=== PATIENT | female | born 1960 | race Caucasian/White ===

== ENCOUNTER 2016-05-12 13:04 | Emergency (ER) | payer OTHER ==
[~2016-05-12] VITALS: Wt 99.0 kg
[~2016-05-12 13:04] MED LIST: LEVO500T72 PO; MECL12.5 PO
[2016-05-12] MEDS ORDERED: LEVALBUTEROL (NEB) 1.25 MG/0.5 ML AMP INH STA (15:30)
[2016-05-12] MEDS ORDERED: IPRATROPIUM (NEB) 0.5 MG/2.5 ML AMP NEB STA (15:30)
[2016-05-12] MEDS ORDERED: predniSONE 20 MG TAB PO STA (15:30)
--- NOTE | 2016-05-12 16:22 | RADRPT ---
PROCEDURE: XR Chest. CLINICAL INDICATION: Chest pain TECHNIQUE: Single frontal chest x-ray. COMPARISON: 06/02/2014 FINDINGS: Linear atelectasis / scarring is identified in the left mid lung. No acute infiltrate, significant pleural effusion or pneumothorax is identified. Cardiomediastinal silhouette is within normal limit s. The osseous structures are unremarkable. IMPRESSION: 1. Linear atelectasis / scarring is identified in the left mid lung. 2. No acute cardiopulmonary process is seen. RPTAT: EE .Iban Ceballos MD, MD Date Time Electronically viewed and signed by .Iban Ceballos MD, on 05/12/2016 16:21 .R/
[2016-05-12] MEDS ORDERED: AZIT250T94 PO (16:54)
[2016-05-12] MEDS ORDERED: PRED20TA PO (16:54)
[2016-05-12] MEDS ORDERED: ALBU8.5H3 INH (16:54)
[2016-05-12 17:05] VITALS: BP 124/58; PULSE 78; RESP 16; TEMP 98.1
--- NOTE | 2016-05-12 18:01 | ERD ---
ER Documentation Chief Complaint Date/Time DATE: 05/12/16 TIME: 17:46 Chief Complaint COUGH X5 DAYS, NUMBNESS ON LEFT ARM HPI Patient is a 55-year-old female who presents to the emergency department with a cough and wheezing 5 days. Patient states that her cough is productive in nature with yellow sputum production. Patient reports wheezing worse at night. She states that she has chest discomfort with deep inspiration. Patient denies any shortness of breath or chest pain at rest. Patient is also complaining of palpitations. Patient states that her palpitations are episodic and last approximately 15 seconds. Patient reports 4 episodes per day. Patient reports tactile fevers 3 days prior which have now resolved. She denies any abdominal pain, pain, throat pain, diarrhea. Patient complaining of left arm numbness which started 6 days ago. She has normal range of motion of her left arm. She denies any trauma or injuries. Patient also complaining of numbness to her left tongue. She states that this has been an ongoing problem for the last month. Patient states that she recently ran out of her sertraline prescription and is requesting refill. She does not recall dose or frequency. ROS All systems reviewed and are negative except as per history of present illness. Medications Home Meds Active Scripts Prednisone* (Prednisone*) 20 Mg Tab, 40 MG PO DAILY for 4 Days, TAB Prov:NAM BARNES PA-C 05/12/16 Azithromycin* (Zithromax*) 250 Mg Tablet, 250 MG PO .ZPACK DIRECTED, #6 TAB TAKE 500 MG (2 TABS) THE FIRST DAY THEN 250 MG (1 TAB) DAYS 2-5 Prov:NAM BARNES PA-C 05/12/16 Albuterol Sulfate* (Proair HFA*) 8.5 Gm Hfa.aer.ad, 2 PUFF INH Q4, #1 INHALER Prov:NAM BARNES PA-C 05/12/16 Levofloxacin* (Levaquin*) 500 Mg Tablet, 500 MG PO DAILY for Diverticulitis , # 10 TAB Prov:KIMMY MARI MD 01/02/15 Meclizine Hcl* (Meclizine Hcl*) 12.5 Mg Tab, 12.5 MG PO BID Y for dizziness , # 60 Prov:KIMMY MARI MD 01/02/15 Allergies Allergies: Coded Allergies: No Known Allergy (Unverified , 05/12/16) PMhx/Soc Sertraline History of Surgery: Yes (left eye , right knee replacement) Anesthesia Reaction: No Hx Neurological Disorder: Yes (vertigo) Hx Respiratory Disorders: No Hx Cardiac Disorders: No Hx Psychiatric Problems: No Hx Miscellaneous Medical Probl: Yes (anxiety) Hx Alcohol Use: No Hx Substance Use: No Hx Tobacco Use: No Smoking Status: Never smoker Physical Exam Vitals Vital Signs Date Time Temp Pulse Resp B/P Pulse Ox O2 Delivery O2 Flow Rate FiO2 05/12/16 17:05 98.1 78 16 124/58 96 Room Air 05/12/16 15:42 90 26 94 21 05/12/16 15:38 66 21 97 Room Air 05/12/16 13:30 97.7 65 17 129/60 96 Physical Exam GENERAL: Well-developed, well-nourished female. Appears in no acute distress, no abdominal retractions, no nasal grunting, no tripoding. HEAD: Normocephalic, atraumatic. No deformities or ecchymosis. EYE: Pupils equal, round, and reactive to light. EOMs intact. No conjunctival erythema. No scleral icterus. No eye discharge. ENT: External ear without any masses or tenderness. Auditory canals clear bilaterally. TM visualized bilaterally, non-erythematous, non-bulging. Nasal mucosa pink with no discharge. Oropharynx is pink without any tonsillar erythema or exudates. No uvula deviation. No kissing tonsils. NECK: Supple. No lymphadenopathy or thyromegaly. No meningismus. No JVD. No bruits. Trachea midline. LUNG: Wheezing heard in bilateral lower lobes, L > R HEART: Regular rate and rhythm. No murmurs, rubs or gallops. ABDOMEN: Soft, nontender, and nondistended. Positive bowel sounds in all four quadrants. No rebound tenderness, no guarding. (-) McBurney's point tenderness. No CVA tenderness. BACK: No midline tenderness. EXTREMITIES: Equal pulses bilaterally. No peripheral clubbing, cyanosis or edema. No unilateral leg swelling. NEUROLOGIC: Alert and oriented x3, cooperative. Mood and affect appropriate to situation. Cranial nerves II through XII are grossly intact. Normal speech. Motor exam: 5/5 strength in upper and lower extremities. Sensory exam: Sensation intact to light touch on all four extremities. Cerebellar function exam: No dysmetria on [id number] test. Steady gait. No pronator drift. (-) Brudzinski sign- no flexion of the hips and knees noted with neck flexion. (-) Kernigs sign- patient able to extend knee to 180 degrees with hip flexion, no hamstring stiffness noted. SKIN: Normal color. Warm and dry. No rashes or lesions. Results 24 hrs Current Medications Medications (Trade) Dose Ordered Sig/Malka Route PRN Reason Start Time Stop Time Status Last Admin Dose Admin Ipratropium [place] (Atrovent 0.02% (Neb)) 0.5 mg ONCE STAT NEB 05/12/16 15:30 05/12/16 15:32 DC 05/12/16 15:41 Prednisone (Prednisone) 40 mg ONCE STAT PO 05/12/16 15:30 05/12/16 15:32 DC 05/12/16 15:37 Levalbuterol (Xopenex Neb) 1.25 mg ONCE STAT INH 05/12/16 15:30 05/12/16 15:33 DC 05/12/16 15:42 Procedures/MDM ED COURSE: The patient was stable throughout ED course. I kept the patient and/or family informed of laboratory and diagnostic imaging results throughout the ED course. EKG: Read by Dr. Bond, attending physician. EKG shows normal sinus rhythm at a rate of 72 bpm. Incomplete right bundle branch block. No arrhythmias, acute ST elevations or T wave changes were noted. DIAGNOSTIC IMAGING: Read by radiologist. DIAGNOSTIC IMAGING REPORT Patient: BIANKA MCGRAW : 1960 Age: 55 Sex: F MR #: [id number] DOS: 05/12/16 1530 Ordering MD: NAM BARNES PA-C Location: [facility] Room/Bed: PROCEDURE: XR Chest. CLINICAL INDICATION: Chest pain TECHNIQUE: Single frontal chest x-ray. COMPARISON: 06/02/2014 FINDINGS: Linear atelectasis / scarring is identified in the left mid lung. No acute infiltrate, significant pleural effusion or pneumothorax is identified. Cardiomediastinal silhouette is within normal limits. The osseous structures are unremarkable. IMPRESSION: 1. Linear atelectasis / scarring is identified in the left mid lung. 2. No acute cardiopulmonary process is seen. RPTAT: EE .Iban Ceballos MD, MD Date Time Electronically viewed and signed by .Iban Ceballos MD, MD on 05/12/2016 16: 21 .R/ CC: NAM BARNES PA-C MEDICATIONS GIVEN: Xopenex, ipratropium, prednisone Patient tolerated medication well with no adverse reactions. Upon reexamination , improved breath sounds were noted. Minimal wheezing auscultated. MEDICAL DECISION MAKING: This is a 55-year-old female who presents with productive cough, wheezing and left arm numbness. Vital signs were reviewed. Patient was afebrile. Patient was not hypoxic. ENT exam was normal. Lung exam revealed bilateral wheezing. A breathing treatment and also prednisone was given to the patient here in the emergency department which did improve the patient's breath sounds. Patient reported improvement in breathing. Chest x-ray showed Linear atelectasis / scarring is identified in the left mid lung. No acute cardiopulmonary process is seen. Given these findings, the patients presentation is most consistent with acute viral bronchitis. I have a much lower clinical concern for bacterial infections including pneumonia, meningitis, sinusitis, otitis externa, acute otitis media, strep pharyngitis, epiglottitis or peritonsillar abscess. EKG showed no acute ST elevations or T wave changes. Patient's palpitations are less likely due to cardiac etiology. I have advised the patient that she needs to follow-up with her primary care physician for further management of her symptoms including her numbness. Patient should see her primary care physician immediately to restart Sertraline. At this time, I will not renew the patient's sertraline prescription given that the patient does not know her dose or frequency. Low suspicion for CVA, TIA or, focal neurological deficits given that patient has normal full neuro exam. PRESCRIPTIONS: Albuterol inhaler, prednisone, Z-Trung DISCHARGE: At this time, patient is stable for discharge and outpatient management. Smoking cessation advised. Supportive therapies such as OTC throat lozenges, salt water gurgles, popsicles and jello discussed. I have instructed the patient to follow-up with his/her primary care physician in 1-2 days. I have instructed the patient to promptly return to the ER for any new or worsening symptoms including increased pain, swelling, fever, nausea, vomiting, weakness or difficulty breathing. The patient and/or family expressed understanding of and agreement with this plan. All questions were answered. Home care instructions were provided. Departure Diagnosis: Primary Impression: Acute bronchitis Bronchitis organism: unspecified organism Qualified Code: J20.9 - Acute bronchitis, unspecified organism Additional Impression: Wheezing Condition: Stable Patient Instructions: Acute Bronchitis Additional Instructions: Call your primary care doctor TOMORROW for an appointment during the next 1-2 days.See the doctor sooner or return here if your condition worsens before your appointment time. Return to the ED with any new or worsening symptoms including chest pain, shortness of breath, or, chills, nausea, vomiting, loss of consciousness. NAM BARNES PA-C May 12, 2016 17:57
== END 2016-05-12 17:05 | disposition home or self-care (01) ==
LOC: FTE 13:04
DX: J20.9 Acute bronchitis, unspecified (principal); R06.2 Wheezing; R07.89 Other chest pain; Z96.651 Presence of right artificial knee joint
CPT/HCPCS: 71010; 94664; J7512

== ENCOUNTER 2017-11-15 16:03 | Emergency (ER) | END 2017-11-15 22:12 | disposition home or self-care (01) ==

== ENCOUNTER 2018-08-14 09:30 | Day surgery (SDC) | payer OTHER ==
[~2018-08-14] VITALS: Ht 165.1 cm; Wt 100.2 kg
[~2018-08-14 09:30] MED LIST changes: +ALBU8.5H8 INH; +AZIT250T PO; +HYDR-4011 PO; +IBUP-1542 PO; +LEVO500T48 PO; -LEVO500T72 PO; +PRED20TA PO
[2018-08-14 10:18] VITALS: BP 124/67; PULSE 67; RESP 16
[2018-08-14 10:25] VITALS: Ht 165.1 cm; Wt 100.2 kg
--- NOTE | 2018-08-14 10:30 | PREAC ---
Date/Time of Note Date/Time of Note DATE: 08/14/18 TIME: 10:29 Anesthesia Eval and Record Evaluation Time Pre-Procedure Interview DATE: 08/14/18 TIME: 10:29 Age 57 Sex female NPO: 8 hrs Preoperative diagnosis Screening Planned procedure Colonoscopy Past Medical History Past Medical History: Includes Cardio: HTN, Dyslipidemia Endo: Hypothyroid Pulm: Smoking Hx, Asthma GI: Obesity Surgery & Anesthesia Issues No known issue Meds Anticoagulation: No Beta Slick within 24 hr: No Reason Beta Slick not given: Pt. not on B-Slick Active Scripts Ibuprofen* (Motrin*) 600 Mg Tab, 600 MG PO Q6, #20 TAB Prov:NATE SANCHES MD 11/15/17 Hydrocodone/Acetaminophen ([place] 5-325 Tablet) 1 Each Tablet, 1 TAB PO Q6H PRN for PAIN, #10 TAB Prov:NATE SANCHES MD 11/15/17 Prednisone* (Prednisone*) 20 Mg Tab, 40 MG PO DAILY for 4 Days, TAB Prov:NAM BARNES PA-C 05/12/16 Azithromycin* (Zithromax*) 250 Mg Tablet, 250 MG PO .ZPACK DIRECTED, #6 TAB TAKE 500 MG (2 TABS) THE FIRST DAY THEN 250 MG (1 TAB) DAYS 2-5 Prov:NAM BARNES PA-C 05/12/16 Albuterol Sulfate* (Proair HFA*) 8.5 Gm Hfa.aer.ad, 2 PUFF INH Q4, #1 INHALER Prov:NAM BARNES PA-C 05/12/16 Levofloxacin* (Levaquin*) 500 Mg Tablet, 500 MG PO DAILY for Diverticulitis , #10 TAB Prov:KIMMY MARI MD 01/02/15 Meclizine Hcl* (Meclizine Hcl*) 12.5 Mg Tab, 12.5 MG PO BID PRN for dizziness , #60 Prov:KIMMY MARI MD 01/02/15 Meds reviewed: Yes Allergies Coded Allergies: No Known Allergy (Unverified , 05/12/16) Allergies Reviewed: Yes Labs/Studies Labs Reviewed: Reviewed by anesthesiologist test: N/A Studies: ECG (n/a), CXR (n/a) Pre-procedure Exam Airway: Adequate mouth opening, Adequate thyromental dist Mallampati: Mallampati II Teeth: Normal Lung: Normal Heart: Normal ASA Physical Status ASA physical status: 3 Emergency: None Planned Anesthetic General/MAC: MAC Planned Pain Management Parenteral pain med Pre-operative Attestations Prior to commencing anesthesia and surgery, the patient was re-evaluated, there was verification of: *The patient's identity *The results of appropriate recent lab work and preoperative vital signs *The above evaluation not changing prior to induction *Anesthetic plan, risk benefits, alternative and complications discussed with patient/family; questions answered; patient/family understands, accepts and wishes to proceed. BRADFORD PRIETO MD Aug 14, 2018 10:30
[2018-08-14] MEDS ORDERED: SERT50TA6 PO (10:35)
[2018-08-14] MEDS ORDERED: CHOL100062 PO (10:35)
[2018-08-14] MEDS ORDERED: FLUT16SP17 NASAL (10:35)
[2018-08-14] MEDS ORDERED: BENZ-5 PO (10:35)
[2018-08-14] MEDS ORDERED: LISI-313 PO (10:35)
[2018-08-14] MEDS ORDERED: PROPOFOL 60 ML ONE (11:59)
[2018-08-14 12:26] VITALS: BP 115/64; PULSE 64; RESP 15
--- NOTE | 2018-08-16 08:43 | PAC ---
Date/Time of Note Date/Time of Note DATE: 08/16/18 TIME: 08:43 Post-Anesthesia Notes Post-Anesthesia Note Last documented vital signs Vital Signs Date Temp Pulse Resp B/P (MAP) Pulse Ox O2 O2 Flow FiO2 Time Delivery Rate 08/14/18 97.5 64 15 115/64 97 Room Air 12:26 (81) 08/14/18 97.5 10:18 Activity: WNL Respiratory function: WNL Cardiovascular function: WNL Mental status: Baseline Pain reasonably controlled: Yes Hydration appropriate: Yes Nausea/Vomiting absent: Yes BRADFORD PRIETO MD Aug 16, 2018 08:43
== END 2018-08-14 12:55 | disposition home or self-care (01) ==
LOC: GIL 09:30
PROVIDERS: ATTEND Internal Medicine Gastroenterology
DX: Z12.11 Encounter for screening for malignant neoplasm of colon (principal); D12.8 Benign neoplasm of rectum; K57.30 Diverticulosis of large intestine without perforation or abscess without bleeding; K64.4 Residual hemorrhoidal skin tags; I10 Essential (primary) hypertension; E03.9 Hypothyroidism, unspecified; J45.909 Unspecified asthma, uncomplicated
CPT/HCPCS: 88305